=== PATIENT | male | born 1945 | race Caucasian/White ===

== ENCOUNTER 2023-01-07 18:52 | Inpatient (IN) | payer MEDICARE, OTHER ==
[~2023-01-07] VITALS: Ht 167.6 cm; Wt 86.2 kg
[2023-01-07] MEDS ORDERED: IV NS 0.9% 1,000 ML BAG IV ONE (19:30)
[2023-01-07] MEDS ORDERED: ONDANSETRON HCL/PF 4 MG/2 ML VIAL IVP ONE (19:30)
[2023-01-07 19:47] LABS: BASOPHILS # (AUTO) 0.1 K/uL (0.0-0.2); BASOPHILS % (AUTO) 1.3 % (0.0-2.0); EOSINOPHILS # (AUTO) 0.3 K/uL (0.0-0.7); EOSINOPHILS % (AUTO) 4.8 % (0.0-6.0); HEMATOCRIT 46 % (39-51); HEMOGLOBIN 15.1 g/dL (13.5-17.5); LYMPHOCYTES # (AUTO) 2.2 K/uL (0.8-4.8); LYMPHOCYTES % (AUTO) 34.9 % (20.0-44.0); MEAN CORPUSCULAR HEMOGLOBIN 28 PG (26.0-33.0); MEAN CORPUSCULAR HGB CONC 33 g/dl (31.0-36.0); MEAN CORPUSCULAR VOLUME 86 fL (80-96); MONOCYTES # (AUTO) 0.3 K/uL (0.1-1.30); MONOCYTES % (AUTO) 5.1 % (2.0-12.0); NEUTROPHILS # (AUTO) 3.5 K/uL (1.8-8.9); NEUTROPHILS % (AUTO) 53.9 % (43.0-81.0); PLATELET COUNT (AUTO) 155 K/uL (150-450); RED BLOOD CELL COUNT(AUTO) 5.37 MIL/uL (4.5-6.0); RED CELL DISTRIBUTION WIDTH 15.4 % (11.5-15.0); WHITE BLOOD COUNT (AUTO) 6.4 K/uL (4.3-11.0)
[2023-01-07 19:55] LABS: CALCIUM, SERUM 9.5 mg/dL (8.5-10.1); CARBON DIOXIDE 24 mmol/L (21-32); CHLORIDE 106 mmol/L (98-107); CREATININE 1.1 mg/dL (0.6-1.3); GLUCOSE 116 mg/dL (74-106); POTASSIUM 3.6 mmol/L (3.5-5.1); SODIUM SERUM 140 mmol/L (136-145); UREA NITROGEN, BLOOD 17 mg/dL (7-18)
[2023-01-07] MEDS ORDERED: ONDANSETRON HCL/PF 4 MG/2 ML VIAL ONE (19:55)
[2023-01-07 20:00] LABS: INR 0.97 (0.91-1.10); PARTIAL THROMBOPLASTIN TIME 29.6 SEC (24.3-34.3); PROTHROMBIN TIME 10.2 SECS (9.2-11.1)
[2023-01-07 20:02] LABS: ALANINE AMINOTRANSFERASE 34 U/L (12-78); ALBUMIN 3.9 g/dL (3.4-5.0); ALKALINE PHOSPHATASE 136 U/L (46-116); ASPARTATE AMINOTRANSFERASE 18 U/L (15-37); BILIRUBIN,DIRECT 0.1 mg/dL (0.0-0.2); BILIRUBIN,TOTAL 0.6 mg/dL (0.2-1.0); TOTAL PROTEIN, SERUM 7.6 g/dL (6.4-8.2)
[2023-01-07] MEDS ORDERED: FAMOTIDINE/PF INJ 40 MG in IV D5W 50 ML IV ONE (21:00)
[2023-01-07] MEDS ORDERED: FAMOTIDINE/PF INJ 20 MG/2 ML VIAL IV ONE (21:10)
[2023-01-07] MEDS ORDERED: MAG HYDROX/AL HYDROX/SIMETH 30 ML UDC PO PRN (21:30)
[2023-01-07] MEDS ORDERED: ZOLPIDEM TARTRATE 5 MG TABLET PO PRN (21:30)
[2023-01-07] MEDS ORDERED: DEXTROSE 50%-WATER 50 ML DISP.SYRIN IV PRN (21:30)
[2023-01-07] MEDS ORDERED: ONDANSETRON HCL/PF 4 MG/2 ML VIAL IVP PRN (21:30)
[2023-01-07] MEDS ORDERED: MAGNESIUM HYDROXIDE 30 ML UDC PO PRN (21:30)
[2023-01-07] MEDS ORDERED: ACETAMINOPHEN 325 MG TABLET PO PRN (21:30)
[2023-01-07] MEDS ORDERED: Z GUARD REMEDY 4 OZ OINT TP PRN (21:30)
[2023-01-07 22:00] VITALS: BP 139/63; TEMP 97.9; O2SAT 98
[2023-01-07] MEDS: BLOOD SUGAR DIAGNOSTIC 1 EACH STRIP IN SCH (22:50)
[2023-01-07] MEDS: INSULIN REGULAR, HUMAN 100 UNIT/ML 3 ML VIAL SQ PRN (22:51)
[2023-01-07] MEDS: IV NS 0.9% 1,000 ML IV PRN (23:02)
[2023-01-08 01:01] LABS: HEMOGLOBIN 12.9 g/dL (13.5-17.5)
[2023-01-08 04:00] VITALS: BP 104/69; TEMP 97.5; O2SAT 96
[2023-01-08] MEDS: BLOOD SUGAR DIAGNOSTIC 1 EACH STRIP IN SCH ×4 (07:57→22:18)
[2023-01-08 08:00] VITALS: BP 130/76; TEMP 97.9; O2SAT 96
[2023-01-08] MEDS: PANTOPRAZOLE 40 MG VIAL IV SCH ×2 (08:40→21:33)
[2023-01-08] MEDS ORDERED: NA P133E RC (09:30)
[2023-01-08] MEDS ORDERED: BISA10SU11 RC (09:30)
[2023-01-08] MEDS ORDERED: MAGN400O6 PO (09:30)
[2023-01-08] MEDS ORDERED: FAMO20TA8 PO (09:30)
[2023-01-08] MEDS ORDERED: ACET-868 PO (09:30)
[2023-01-08] MEDS ORDERED: BLOO-668 IN (09:30)
[2023-01-08] MEDS ORDERED: ATOR40TA PO (09:30)
[2023-01-08] MEDS ORDERED: CHOL3000 PO (09:30)
[2023-01-08] MEDS ORDERED: MULT-213 PO (09:30)
[2023-01-08 11:28] LABS: HEMOGLOBIN 13.7 g/dL (13.5-17.5)
[2023-01-08] MEDS: IV NS 0.9% 1,000 ML IV PRN (12:14)
[2023-01-08 16:00] VITALS: O2SAT 93
[2023-01-08 20:31] VITALS: BP 168/70; TEMP 99; O2SAT 100
[2023-01-08] MEDS: INSULIN REGULAR, HUMAN 100 UNIT/ML 3 ML VIAL SQ PRN (22:19)
[2023-01-08 22:22] LABS: HEMOGLOBIN 14.5 g/dL (13.5-17.5)
[2023-01-08] MEDS: IV D5/ 0.9% NACL 1,000 ML IV PRN (23:14)
[2023-01-09] VITALS: BP 160/69; TEMP 98; O2SAT 100
[2023-01-09] MEDS: BLOOD SUGAR DIAGNOSTIC 1 EACH STRIP IN SCH ×4 (07:56→21:34)
[2023-01-09] MEDS: INSULIN REGULAR, HUMAN 100 UNIT/ML 3 ML VIAL SQ PRN ×2 (07:59→21:34)
[2023-01-09 08:00] VITALS: BP 141/66; TEMP 97.9; O2SAT 100
[2023-01-09] MEDS: PANTOPRAZOLE 40 MG VIAL IV SCH ×2 (08:50→21:34)
[2023-01-09] MEDS: IV D5/ 0.9% NACL 1,000 ML IV PRN (12:59)
[2023-01-09 16:00] VITALS: BP 180/77; TEMP 97.9; O2SAT 95
[2023-01-09] MEDS: hydrALAZINE HCL 50 MG TABLET PO SCH ×2 (17:03→21:00)
[2023-01-09 21:30] VITALS: BP 138/70; TEMP 97.7; O2SAT 99
[2023-01-10] MEDS: IV D5/ 0.9% NACL 1,000 ML IV PRN (00:34)
[2023-01-10 04:59] VITALS: BP 112/57; TEMP 98.5; O2SAT 94
[2023-01-10] MEDS: BLOOD SUGAR DIAGNOSTIC 1 EACH STRIP IN SCH ×4 (07:30→22:00)
[2023-01-10] MEDS: hydrALAZINE HCL 50 MG TABLET PO SCH ×3 (08:18→20:31)
[2023-01-10] MEDS: PANTOPRAZOLE 40 MG VIAL IV SCH (08:18)
[2023-01-10] MEDS: PANTOPRAZOLE 40 MG/PACK PACK PO SCH (20:31)
[2023-01-11] MEDS: BLOOD SUGAR DIAGNOSTIC 1 EACH STRIP IN SCH ×2 (08:21→11:43)
[2023-01-11] MEDS: PANTOPRAZOLE 40 MG/PACK PACK PO SCH (09:00)
[2023-01-11] MEDS: hydrALAZINE HCL 50 MG TABLET PO SCH ×2 (09:00→12:29)
[2023-01-11 12:07] VITALS: BP 120/68; TEMP 97.5; O2SAT 94
[2023-01-11 12:29] VITALS: BP 120/70
== END 2023-01-11 15:40 | DRG 378 ==
LOC: ER 18:55 → TELE1 21:00 → MEDSG1 21:08
PROVIDERS: ADMIT Nurse Practitioner Acute Care
DX: K92.2 Gastrointestinal hemorrhage, unspecified (principal); D68.59 Other primary thrombophilia; G93.49 Other encephalopathy; F03.90 Unspecified dementia, unspecified severity, without behavioral disturbance, psychotic disturbance, mood disturbance, and anxiety; I69.398 Other sequelae of cerebral infarction; K21.9 Gastro-esophageal reflux disease without esophagitis; I10 Essential (primary) hypertension; R13.10 Dysphagia, unspecified; E78.5 Hyperlipidemia, unspecified; Z74.09 Other reduced mobility; E11.36 Type 2 diabetes mellitus with diabetic cataract
CPT/HCPCS: 36415; 71045-TC; 80048-TC; 80076-TC; 82962-TC; 84484-TC; 85025-TC; 85027-TC; 85730-TC; 86850-TC; 87081-TC; A4223; C9113; G0378; J1815; J2405; J3490; J7030; J7042; J7060

== ENCOUNTER 2023-10-15 21:43 | Emergency (ER) | payer MEDICARE, OTHER ==
[~2023-10-15] VITALS: Ht 167.6 cm; Wt 81.6 kg
[~2023-10-15 21:43] MED LIST: ACET-868 PO; ATOR40TA PO; BISA10SU11 RC; BLOO-668 IN; CHOL3000 PO; FAMO20TA8 PO; MAGN400O6 PO; MULT-213 PO; NA P133E RC
[2023-10-15 21:53] VITALS: BP 149/82; TEMP 98.6; O2SAT 98
[2023-10-15 22:50] LABS: BASOPHILS % (AUTO) 0.3 % (0.0-2.0); EOSINOPHILS # (AUTO) 0.4 K/uL (0.0-0.7); EOSINOPHILS % (AUTO) 4.9 % (0.0-6.0); HEMATOCRIT 43 % (39-51); HEMOGLOBIN 14.8 g/dL (13.5-17.5); LYMPHOCYTES # (AUTO) 2.4 K/uL (0.8-4.8); LYMPHOCYTES % (AUTO) 33.5 % (20.0-44.0); MEAN CORPUSCULAR HEMOGLOBIN 29 PG (26.0-33.0); MEAN CORPUSCULAR HGB CONC 35 g/dl (31.0-36.0); MEAN CORPUSCULAR VOLUME 84 fL (80-96); MONOCYTES # (AUTO) 0.6 K/uL (0.1-1.30); MONOCYTES % (AUTO) 8.1 % (2.0-12.0); NEUTROPHILS # (AUTO) 3.8 K/uL (1.8-8.9); NEUTROPHILS % (AUTO) 53.2 % (43.0-81.0); PLATELET COUNT (AUTO) 151 K/uL (150-450); RED BLOOD CELL COUNT(AUTO) 5.09 MIL/uL (4.5-6.0); RED CELL DISTRIBUTION WIDTH 15.4 % (11.5-15.0); WHITE BLOOD COUNT (AUTO) 7.1 K/uL (4.3-11.0)
[2023-10-15 23:04] LABS: INR 0.95 (0.91-1.10); PARTIAL THROMBOPLASTIN TIME 27.9 SEC (24.3-34.3); PROTHROMBIN TIME 10.1 SECS (9.2-11.1)
[2023-10-15 23:06] LABS: ALANINE AMINOTRANSFERASE 43 U/L (12-78); ALBUMIN 3.3 g/dL (3.4-5.0); ALCOHOL, BLOOD < 3 mg/dL (0-10); ALKALINE PHOSPHATASE 93 U/L (46-116); ASPARTATE AMINOTRANSFERASE 28 U/L (15-37); BILIRUBIN,DIRECT 0.1 mg/dL (0.0-0.2); BILIRUBIN,TOTAL 0.5 mg/dL (0.2-1.0); CALCIUM, SERUM 9.1 mg/dL (8.5-10.1); CARBON DIOXIDE 22 mmol/L (21-32); CHLORIDE 106 mmol/L (98-107); CREATININE 0.9 mg/dL (0.6-1.3); GLUCOSE 101 mg/dL (74-106); POTASSIUM 3.8 mmol/L (3.5-5.1); SODIUM SERUM 140 mmol/L (136-145); TOTAL PROTEIN, SERUM 7.1 g/dL (6.4-8.2); UREA NITROGEN, BLOOD 13 mg/dL (7-18)
[2023-10-16 00:01] LABS: APPEARANCE,URINE CLEAR (CLEAR); BILIRUBIN,URINE NEGATIVE (NEGATIVE); BLOOD, URINE TRACE-INTA Ery/uL (NEGATIVE); COLOR,URINE YELLOW (YELLOW); KETONES,URINE NEGATIVE (NEGATIVE); LEUKOCYTE ESTERASE ,URINE NEGATIVE (NEGATIVE); NITRITE, URINE NEGATIVE (NEGATIVE); PROTEIN,URINE NEGATIVE (NEGATIVE); UGLUCOSE NEGATIVE (NEGATIVE); UROBILINOGEN,URINE 0.2 EU/dL (0.2)
[2023-10-16 00:05] LABS: ADD URINE CULTURE NO; BACTERIA,URINE Rare /HPF (None Seen); SQUAMOUS EPITHELIAL CELL,UR Few /HPF (None Seen); WBC,URINE 0-2 /HPF (0-3)
[2023-10-16 00:06] LABS: AMPHETAMINE, URINE NEGATIVE (NEGATIVE); BARBITURATE, URINE NEGATIVE (NEGATIVE); BENZODIAZEPINE, URINE NEGATIVE (NEGATIVE); CANNABINOID, URINE NEGATIVE (NEGATIVE); COCCAINE, URINE NEGATIVE (NEGATIVE); OPIATE, URINE NEGATIVE (NEGATIVE); PHENCYCLIDINE SCREEN,URINE NEGATIVE (NEGATIVE)
[2023-10-16] MEDS ORDERED: INSU100V27 SQ (11:04)
[2023-10-16] MEDS ORDERED: HYDR-4077 PO (11:04)
[2023-10-16] MEDS ORDERED: CHOL100043 PO (11:04)
[2023-10-20] MEDS ORDERED: AMOX1TAB16 PO (14:09)
[2023-10-20] MEDS ORDERED: ATOR40TA PO (14:09)
[2023-10-20] MEDS ORDERED: LEVE100S PO (14:09)
== END 2023-10-16 02:46 ==
LOC: ER 21:50
DX: R56.9 Unspecified convulsions (principal); I10 Essential (primary) hypertension; E11.9 Type 2 diabetes mellitus without complications; Z79.899 Other long term (current) drug therapy
CPT/HCPCS: 36415; 70450-TC; 71045-TC; 80048-TC; 80076-TC; 81001; 85025-TC; 85730-TC; G0480

== ENCOUNTER 2023-10-16 09:59 | Inpatient (IN) | payer MEDICARE, OTHER ==
[~2023-10-16] VITALS: Ht 170.2 cm; Wt 78.5 kg
[2023-10-16] MEDS ORDERED: LEVETIRACETAM (500MG) 1,000 MG in IV NS 0.9% 90 ML IV SCH (10:30)
[2023-10-16] MEDS: IV NS 0.9% 500 ML BAG IV ONE (10:51)
[2023-10-16] MEDS ORDERED: CHOL100043 PO (11:04)
[2023-10-16] MEDS ORDERED: HYDR-4077 PO (11:04)
[2023-10-16] MEDS ORDERED: INSU100V27 SQ (11:04)
[2023-10-16] MEDS: LEVETIRACETAM (500MG) 1,000 MG in IV NS 0.9% 90 ML IV ONE (11:09)
[2023-10-16 11:23] LABS: BASOPHILS % (AUTO) 0.6 % (0.0-2.0); EOSINOPHILS # (AUTO) 0.1 K/uL (0.0-0.7); EOSINOPHILS % (AUTO) 0.8 % (0.0-6.0); HEMATOCRIT 39 % (39-51); HEMOGLOBIN 13.1 g/dL (13.5-17.5); LYMPHOCYTES # (AUTO) 1.2 K/uL (0.8-4.8); LYMPHOCYTES % (AUTO) 17.3 % (20.0-44.0); MEAN CORPUSCULAR HEMOGLOBIN 30 PG (26.0-33.0); MEAN CORPUSCULAR HGB CONC 34 g/dl (31.0-36.0); MEAN CORPUSCULAR VOLUME 88 fL (80-96); MONOCYTES # (AUTO) 0.5 K/uL (0.1-1.30); MONOCYTES % (AUTO) 7.3 % (2.0-12.0); NEUTROPHILS # (AUTO) 5.2 K/uL (1.8-8.9); PLATELET COUNT (AUTO) 267 K/uL (150-450); RED BLOOD CELL COUNT(AUTO) 4.41 MIL/uL (4.5-6.0); RED CELL DISTRIBUTION WIDTH 12.7 % (11.5-15.0)
[2023-10-16 11:26] LABS: CALCIUM, SERUM 8.9 mg/dL (8.5-10.1); CREATININE 0.7 mg/dL (0.6-1.3); POTASSIUM 4.3 mmol/L (3.5-5.1)
[2023-10-16] MEDS ORDERED: MAG HYDROX/AL HYDROX/SIMETH 30 ML UDC PO PRN (11:30)
[2023-10-16] MEDS ORDERED: ONDANSETRON HCL/PF 4 MG/2 ML VIAL IVP PRN (11:30)
[2023-10-16] MEDS ORDERED: ZOLPIDEM TARTRATE 5 MG TABLET PO PRN (11:30)
[2023-10-16] MEDS ORDERED: ACETAMINOPHEN 325 MG TABLET PO PRN ×3 (11:30→19:30)
[2023-10-16] MEDS ORDERED: MAGNESIUM HYDROXIDE 30 ML UDC PO PRN ×2 (11:30→19:30)
[2023-10-16] MEDS ORDERED: Z GUARD REMEDY 4 OZ OINT TP PRN (11:30)
[2023-10-16] MEDS: ENOXAPARIN SODIUM 40 MG/0.4 ML DISP.SYRIN SQ SCH (14:56)
[2023-10-16 16:00] VITALS: BP 136/65; TEMP 96.2; O2SAT 96
[2023-10-16] MEDS ORDERED: BISACODYL SUPP (10 MG) 10 MG/SUPP.RECT SUPP.RECT RC PRN (19:30)
[2023-10-16] MEDS ORDERED: *INSULIN REGULAR(HUMULIN R)HUM 100 UNIT/ML VIAL SQ PRN (19:30)
[2023-10-16] MEDS ORDERED: LORAZEPAM INJ 2 MG/ML VIAL IV PRN (19:30)
[2023-10-16] MEDS ORDERED: DEXTROSE 50%-WATER 50 ML DISP.SYRIN IV PRN (19:30)
[2023-10-16] MEDS ORDERED: NA PHOS,M-B/NA PHOS,DI-BA 1 EA ENEMA RC PRN (19:30)
[2023-10-16 20:00] VITALS: BP 136/62; TEMP 97.7; O2SAT 96
[2023-10-16] MEDS: LEVETIRACETAM SOL (5 ML) 100 MG/ML UDC PO SCH (21:45)
[2023-10-16] MEDS: hydrALAZINE HCL 50 MG TABLET PO SCH (21:54)
[2023-10-16] MEDS: BLOOD SUGAR DIAGNOSTIC 1 EACH STRIP VI SCH (23:38)
[2023-10-17] VITALS (7 sets, daily range): BP systolic 112–138; BP diastolic 53–82; TEMP 97.7–99.1; O2SAT 93–95
[2023-10-17] MEDS: PANTOPRAZOLE 40 MG TABLET.DR PO SCH (07:30)
[2023-10-17 07:38] LABS: BASOPHILS # (AUTO) 0.1 K/uL (0.0-0.2); BASOPHILS % (AUTO) 2.2 % (0.0-2.0); EOSINOPHILS # (AUTO) 0.3 K/uL (0.0-0.7); EOSINOPHILS % (AUTO) 5.4 % (0.0-6.0); HEMATOCRIT 43 % (39-51); HEMOGLOBIN 14.5 g/dL (13.5-17.5); LYMPHOCYTES # (AUTO) 2.2 K/uL (0.8-4.8); LYMPHOCYTES % (AUTO) 38.4 % (20.0-44.0); MEAN CORPUSCULAR HEMOGLOBIN 29 PG (26.0-33.0); MEAN CORPUSCULAR HGB CONC 34 g/dl (31.0-36.0); MEAN CORPUSCULAR VOLUME 85 fL (80-96); MONOCYTES # (AUTO) 0.4 K/uL (0.1-1.30); MONOCYTES % (AUTO) 6.9 % (2.0-12.0); NEUTROPHILS # (AUTO) 2.7 K/uL (1.8-8.9); NEUTROPHILS % (AUTO) 47.1 % (43.0-81.0); PLATELET COUNT (AUTO) 143 K/uL (150-450); RED CELL DISTRIBUTION WIDTH 15.4 % (11.5-15.0); WHITE BLOOD COUNT (AUTO) 5.6 K/uL (4.3-11.0)
[2023-10-17 08:00] LABS: CALCIUM, SERUM 8.5 mg/dL (8.5-10.1); CARBON DIOXIDE 24 mmol/L (21-32); CHLORIDE 108 mmol/L (98-107); CREATININE 0.8 mg/dL (0.6-1.3); GLUCOSE 85 mg/dL (74-106); MAGNESIUM 2.7 mg/dL (1.8-2.4); PHOSPHORUS 3.6 mg/dL (2.5-4.9); POTASSIUM 3.9 mmol/L (3.5-5.1); SODIUM SERUM 141 mmol/L (136-145); UREA NITROGEN, BLOOD 15 mg/dL (7-18)
[2023-10-17] MEDS: CHOLECALCIFEROL 1,000 UNIT TABLET (VIT D3) PO SCH (09:00)
[2023-10-17] MEDS ORDERED: ASPIRIN EC 81 MG TABLET.DR PO SCH (09:30)
[2023-10-17 10:28] LABS: CHOLESTEROL 260 mg/dL (<200); HDL CHOLESTEROL 29 mg/dL (40-60); LDL 198 mg/dL (0-99); TRIGLYCERIDES 141 mg/dL (30-150)
[2023-10-17] MEDS: LEVETIRACETAM (500MG) 500 MG in IV NS 0.9% 100 ML IV SCH (11:25)
[2023-10-17] MEDS: ASPIRIN 300 MG/SUPP.RECT RC SCH (11:26)
[2023-10-17 11:29] LABS: BILIRUBIN,TOTAL 0.8 mg/dL (0.2-1.0); TOTAL PROTEIN, SERUM 6.9 g/dL (6.4-8.2)
[2023-10-17 11:49] LABS: ALBUMIN 3.1 g/dL (3.4-5.0); BILIRUBIN,DIRECT 0.1 mg/dL (0.0-0.2)
[2023-10-17] MEDS: ATORVASTATIN 40 MG TABLET PO SCH (21:31)
[2023-10-17] MEDS: INSULIN REGULAR, HUMAN 100 UNIT/ML 3 ML VIAL SQ PRN (22:29)
[2023-10-18] VITALS: BP 124/62; TEMP 98; O2SAT 93
[2023-10-18 04:00] VITALS: BP 115/58; TEMP 97.7; O2SAT 93
[2023-10-18 06:19] LABS: BASOPHILS # (AUTO) 0.1 K/uL (0.0-0.2); BASOPHILS % (AUTO) 1.8 % (0.0-2.0); EOSINOPHILS # (AUTO) 0.3 K/uL (0.0-0.7); EOSINOPHILS % (AUTO) 4.8 % (0.0-6.0); HEMATOCRIT 40 % (39-51); HEMOGLOBIN 13.6 g/dL (13.5-17.5); LYMPHOCYTES # (AUTO) 1.9 K/uL (0.8-4.8); LYMPHOCYTES % (AUTO) 32.7 % (20.0-44.0); MEAN CORPUSCULAR HEMOGLOBIN 29 PG (26.0-33.0); MEAN CORPUSCULAR HGB CONC 34 g/dl (31.0-36.0); MEAN CORPUSCULAR VOLUME 85 fL (80-96); MONOCYTES # (AUTO) 0.4 K/uL (0.1-1.30); MONOCYTES % (AUTO) 7.7 % (2.0-12.0); PLATELET COUNT (AUTO) 142 K/uL (150-450); RED BLOOD CELL COUNT(AUTO) 4.78 MIL/uL (4.5-6.0); RED CELL DISTRIBUTION WIDTH 15.8 % (11.5-15.0); WHITE BLOOD COUNT (AUTO) 5.7 K/uL (4.3-11.0)
[2023-10-18 07:05] LABS: CREATININE 0.8 mg/dL (0.6-1.3); MAGNESIUM 2.6 mg/dL (1.8-2.4); PHOSPHORUS 3.2 mg/dL (2.5-4.9); POTASSIUM 3.5 mmol/L (3.5-5.1)
[2023-10-18 08:00] VITALS: BP 110/61; TEMP 97.7; O2SAT 94
[2023-10-18 12:00] VITALS: BP 100/76; TEMP 97.3; O2SAT 95
[2023-10-18 16:00] VITALS: BP 107/72; TEMP 97.7; O2SAT 95
[2023-10-18 20:00] VITALS: BP 122/88; TEMP 98; O2SAT 96
[2023-10-18] MEDS: AMOX/CLAVULANATE 875 MG TABLET PO SCH (21:22)
[2023-10-19] VITALS: BP 123/63; TEMP 97.7; O2SAT 98
[2023-10-19 04:00] VITALS: BP 109/62; TEMP 98; O2SAT 98
[2023-10-19 06:49] LABS: BASOPHILS # (AUTO) 0.1 K/uL (0.0-0.2); EOSINOPHILS # (AUTO) 0.3 K/uL (0.0-0.7); EOSINOPHILS % (AUTO) 5.2 % (0.0-6.0); HEMATOCRIT 40 % (39-51); HEMOGLOBIN 13.8 g/dL (13.5-17.5); LYMPHOCYTES # (AUTO) 1.7 K/uL (0.8-4.8); LYMPHOCYTES % (AUTO) 32.4 % (20.0-44.0); MEAN CORPUSCULAR HEMOGLOBIN 29 PG (26.0-33.0); MEAN CORPUSCULAR HGB CONC 34 g/dl (31.0-36.0); MEAN CORPUSCULAR VOLUME 85 fL (80-96); MONOCYTES # (AUTO) 0.4 K/uL (0.1-1.30); MONOCYTES % (AUTO) 7.6 % (2.0-12.0); NEUTROPHILS # (AUTO) 2.8 K/uL (1.8-8.9); NEUTROPHILS % (AUTO) 52.8 % (43.0-81.0); PLATELET COUNT (AUTO) 137 K/uL (150-450); RED BLOOD CELL COUNT(AUTO) 4.76 MIL/uL (4.5-6.0); RED CELL DISTRIBUTION WIDTH 15.2 % (11.5-15.0); WHITE BLOOD COUNT (AUTO) 5.3 K/uL (4.3-11.0)
[2023-10-19 07:10] LABS: CALCIUM, SERUM 8.3 mg/dL (8.5-10.1); CREATININE 0.8 mg/dL (0.6-1.3); MAGNESIUM 2.4 mg/dL (1.8-2.4); PHOSPHORUS 2.9 mg/dL (2.5-4.9); POTASSIUM 3.7 mmol/L (3.5-5.1)
[2023-10-19 08:00] VITALS: BP 138/69; TEMP 97.6; O2SAT 95
[2023-10-19 12:00] VITALS: BP 108/62; TEMP 98; O2SAT 98
[2023-10-19 12:11] LABS: FOLIC ACID 5.4 ng/mL (>3.0)
[2023-10-19 16:00] VITALS: BP 129/75; TEMP 98.7; O2SAT 95
[2023-10-19 20:00] VITALS: BP 130/63; TEMP 97.9; O2SAT 95
[2023-10-19] MEDS: LEVETIRACETAM SOL (5 ML) 100 MG/ML UDC PO SCH (21:06)
[2023-10-20] VITALS: BP 126/76; TEMP 98; O2SAT 96
[2023-10-20 04:00] VITALS: BP 126/67; TEMP 97.7; O2SAT 96
[2023-10-20 09:00] VITALS: BP 124/69; TEMP 97.3; O2SAT 96
[2023-10-20] MEDS ORDERED: LORAZEPAM 1 MG TABLET PO PRN (10:30)
[2023-10-20 12:00] VITALS: BP 123/63; TEMP 97.7; O2SAT 97
[2023-10-20] MEDS ORDERED: NITROGLYCERIN 0.4 MG/TAB BOTTLE SL PRN ×2 (12:30)
[2023-10-20] MEDS ORDERED: LEVE100S PO (14:09)
[2023-10-20] MEDS ORDERED: AMOX1TAB16 PO (14:09)
[2023-10-20] MEDS ORDERED: ATOR40TA PO (14:09)
[2023-10-20 16:00] VITALS: BP 113/66; TEMP 98.1; O2SAT 99
== END 2023-10-20 17:50 | DRG 57 ==
LOC: ER 10:10 → TELE1 11:24
PROVIDERS: ADMIT Student in an Organized Health Care Education/Training Program; ATTEND Nurse Practitioner Acute Care
DX: I69.398 Other sequelae of cerebral infarction (principal); D68.59 Other primary thrombophilia; G93.40 Encephalopathy, unspecified; I69.351 Hemiplegia and hemiparesis following cerebral infarction affecting right dominant side; R56.9 Unspecified convulsions; K21.9 Gastro-esophageal reflux disease without esophagitis; R13.10 Dysphagia, unspecified; I10 Essential (primary) hypertension; Z79.4 Long term (current) use of insulin; Z79.899 Other long term (current) drug therapy; D64.9 Anemia, unspecified; E78.5 Hyperlipidemia, unspecified; Z74.09 Other reduced mobility; F03.90 Unspecified dementia, unspecified severity, without behavioral disturbance, psychotic disturbance, mood disturbance, and anxiety; D69.6 Thrombocytopenia, unspecified; E11.9 Type 2 diabetes mellitus without complications; E83.51 Hypocalcemia
CPT/HCPCS: 36415; 71045-TC; 80048-TC; 80061-TC; 80076-TC; 82607-TC; 82962-TC; 83735-TC; 83921; 84100-TC; 85025-TC; 87081-TC; 92521; 92526; 92611-TC; 95819-TC; A4223; G0378; J1650; J1815; J1953; J7030; J7040; J7050